=== PATIENT | male | born 1955 | race Caucasian/White ===

== ENCOUNTER 2020-03-31 17:38 | Emergency (ER) | payer OTHER ==
[~2020-03-31] VITALS: Ht 172.7 cm; Wt 81.6 kg
[2020-03-31] MEDS ORDERED: ZESTRIL10 M1 (17:47)
[2020-03-31] MEDS ORDERED: CRESTOR10 MG (17:47)
[2020-03-31] MEDS ORDERED: TOPROL XL25 M1 (17:48)
[2020-03-31] MEDS ORDERED: SKELAXIN800 MG PO (20:34)
[2020-03-31] MEDS ORDERED: KETO10TA2 PO (20:34)
== END 2020-03-31 20:40 | disposition home or self-care (01) ==
LOC: ER 17:38
DX: S80.01XA Contusion of right knee, initial encounter (principal); S33.5XXA Sprain of ligaments of lumbar spine, initial encounter; W01.198A Fall on same level from slipping, tripping and stumbling with subsequent striking against other object, initial encounter; Y93.01 Activity, walking, marching and hiking; Y92.89 Other specified places as the place of occurrence of the external cause; Y99.8 Other external cause status